=== PATIENT | female | born 1970 ===

== ENCOUNTER 2017-06-25 13:14 | Emergency (ER) | payer MEDICARE, MEDICAID ==
[2017-06-25 13:14] VITALS: BMI 24.3
[2017-06-25 13:31] VITALS: BP 125/93; PULSE 60; RESP 16; TEMP 97.5; O2SAT 99
--- NOTE | 2017-06-25 13:49 | ED PDOC ---
HPI: Abdomen Time Seen by Provider: 06/25/17 13:21 Chief Complaint (Nursing): GI Problem Chief Complaint (Provider): Nausea/Vomiting/Diarrhea History Per: Patient History/Exam Limitations: no limitations Onset/Duration Of Symptoms: Days (x14) Current Symptoms Are (Timing): Still Present Additional Complaint(s): Brook Cheng is a 47 year old female with a past medial history of HIV, epileptic seizures, Asthma, and ulcers referred to the ED by her PMD, Lg Fernandez MD, for an evaluation of nausea, vomiting, and diarrhea occurring for 2 weeks prior to arrival. The patient states associated diffuse abdominal pain, dysuria, generalized weakness, subjective fever, and chills. The patient also reports having pain in her right flank and receiving an injection for the pain at her PMD's office, without relief. She states vomiting 5 times per day, not prompted by any PO intake, and reports usually watery vomiting with blood present in her vomit this morning. She states having watery diarrhea occurring for 3-4 times per day. Additionally, the patient's last CD4/viral load count is unknown, but she states these are okay from her last evaluation of this with her PMD. She denies experiencing any similar symptoms in her past and denies taking any medications for her current symptoms. Of note, the patient is complaint with her HIV medication. PMD: Lg Fernandez MD Past Medical History Reviewed: Historical Data, Nursing Documentation, Vital Signs Vital Signs: Last Vital Signs Temp 97.5 F L 06/25/17 13:17 Pulse 60 06/25/17 13:17 Resp 16 06/25/17 13:17 BP 125/93 H 06/25/17 13:17 Pulse Ox 99 06/25/17 16:40 - Medical History PMH: Anemia, Anxiety, Asthma (last attack 09/20/13), HIV, Seizures Denies: Diabetes, Hepatitis, HTN, Chronic Kidney Disease, Sexually Transmitted Disease - Surgical History Surgical History: Tonsillectomy (2012), - Family History Family History: States: Other Other Family History: non-contributory - Social History Current smoker - smoking cessation education provided: Yes Alcohol: None Drugs: Denies - Home Medications Home Medications: Ambulatory Orders Medication Instructions Recorded ALPRAZolam [Xanax] 1 mg PO Q12H 06/25/17 Albuterol HFA [Ventolin HFA 90 2 puff IH Q4H PRN 06/25/17 mcg/actuation (8 g)] Budesonide/Formoterol Fumarate 2 puff IH Q12H 06/25/17 [Symbicort 80-4.5 Mcg Inhaler] DULoxetine [Cymbalta] 20 mg PO DAILY 06/25/17 Dicyclomine [Bentyl] 20 mg PO BID PRN #30 tab 06/25/17 Dolutegravir Sodium [Tivicay] 50 mg PO DAILY 06/25/17 Emtricitabine/Tenofovir Diso 1 tab PO DAILY 06/25/17 [Truvada 200 MG-300 MG] Ergocalciferol (Vitamin D2) 50,000 unit PO FR 06/25/17 [Vitamin D2] Hydrocodone/Acetaminophen 1 tab PO Q12H PRN 06/25/17 [Hydrocodone-Acetamin 5-325 mg] Levetiracetam [Keppra] 750 mg PO Q12H 06/25/17 Ondansetron ODT [Zofran ODT] 1 odt PO Q6 PRN #20 odt 06/25/17 Ondansetron [Zofran Tab] 4 mg PO Q8H PRN 06/25/17 Pantoprazole Sodium [Protonix] 40 mg PO DAILY 06/25/17 QUEtiapine [Seroquel] 100 mg PO HS 06/25/17 - Allergies Allergies/Adverse Reactions: Allergies Allergy/AdvReac Type Severity Reaction Status Date / Time FISH Allergy RASH Verified 09/10/15 09:17 Review of Systems ROS Statement: Except As Marked, All Systems Reviewed And Found Negative Constitutional: Positive for: Fever (subjective), Chills, Weakness (generalized) Cardiovascular: Negative for: Edema Respiratory: Negative for: Cough, Shortness of Breath Gastrointestinal: Positive for: Nausea, Vomiting, Abdominal Pain (diffuse), Diarrhea, Hematemesis Genitourinary Female: Positive for: Dysuria Musculoskeletal: Positive for: Other (right flank pain) Neurological: Negative for: Numbness, Headache Physical Exam - Reviewed Nursing Documentation Reviewed: Yes Vital Signs Reviewed: Yes - Physical Exam Appears: Positive for: Non-toxic, No Acute Distress Head Exam: Positive for: ATRAUMATIC, NORMOCEPHALIC Skin: Positive for: Normal Color, Warm, Dry Eye Exam: Positive for: Normal appearance, EOMI, PERRL ENT: Positive for: Normal ENT Inspection, Pharynx Is (normal) Neck: Positive for: Normal, Painless ROM Cardiovascular/Chest: Positive for: Regular Rate, Rhythm, Chest Non Tender Respiratory: Positive for: Normal Breath Sounds. Negative for: Respiratory Distress Gastrointestinal/Abdominal: Positive for: Soft, Tenderness (diffuse tenderness) . Negative for: Mass Extremity: Positive for: Normal ROM. Negative for: Pedal Edema, Deformity Neurologic/Psych: Positive for: Alert, Oriented (x3). Negative for: Motor/ Sensory Deficits, Other (no focal deficits) - Laboratory Results Result Diagrams: 06/25/17 13:59 06/25/17 13:59 - ECG O2 Sat by Pulse Oximetry: 99 (RA) Pulse Ox Interpretation: Normal Medical Decision Making Medical Decision Making: Scribe Attestation: Documented by Татьяна Holly, acting as a scribe for Neo Inman MD. Provider Scribe Attestation: All medical record entries made by the Scribe were at my direction and personally dictated by me. I have reviewed the chart and agree that the record accurately reflects my personal performance of the history, physical exam, medical decision making, and the department course for this patient. I have also personally directed, reviewed, and agree with the discharge instructions and disposition. Disposition - Clinical Impression Clinical Impression: Abdominal pain, Vomiting and diarrhea - Disposition Referrals: Lg Fernandez MD [Staff Provider] - 06/26/17 Disposition Time: 15:00 Condition: STABLE Prescriptions: Dicyclomine [Bentyl] 20 mg PO BID PRN #30 tab PRN Reason: abdominal pain Ondansetron ODT [Zofran ODT] 1 odt PO Q6 PRN #20 odt PRN Reason: Nausea/Vomiting Forms: [facility] ([place]ican) Patient Signed Over To: Lorena Combs (15:00) Handoff Comments: pending CT scan results
[2017-06-25] MEDS ORDERED: Morphine 4 MG/ML VIAL ONE (14:00)
[2017-06-25] MEDS: Sodium Chloride 0.9% 1,000 ML IV SCH (14:02)
[2017-06-25 14:10] LABS: BASO % 0.3 % (0.0-2.0); EOS # 0.1 K/uL (0.0-0.7); EOS % 0.7 % (0.0-4.0); HEMATOCRIT 46.2 % (34.0-47.0); LYMPH # 2.6 K/uL (1.0-4.3); MEAN CORPUSCULAR HGB CONC 34.5 g/dL (33.0-37.0); MEAN PLATELET VOLUME 8.1 fl (7.2-11.7); MONO # 0.4 K/uL (0.0-0.8); MONO % 5.5 % (0.0-10.0); NEUT # 4.5 K/uL (1.8-7.0); NEUT % 59.5 % (50.0-75.0); NRBC % 0.2 % (0.0-0.0); RED CELL DISTRIBUTION WIDTH 12.5 % (11.5-14.5); WHITE BLOOD COUNT 7.5 K/uL (4.8-10.8)
[2017-06-25 14:16] LABS: ALKALINE PHOSPHATASE 83 U/L (38-126); ALT/SGPT 40 U/L (9-52); AST/SGOT 34 U/L (14-36); BILIRUBIN,TOTAL 0.6 mg/dl (0.2-1.3); BLOOD UREA NITROGEN 13 mg/dl (7-17); CARBON DIOXIDE 24 mmol/L (22-30); CHLORIDE 105 mmol/L (98-107); GFR AFRICAN-AMERICAN > 60; GLUCOSE,RANDOM 104 mg/dL (65-105); LIPASE 97 U/L (23-300); MEAN CELL VOLUME 95.5 fl (81.0-99.0); POTASSIUM 3.6 MMOL/L (3.6-5.0); SODIUM 143 mmol/l (132-148); TOTAL PROTEIN 8.7 G/DL (6.3-8.2)
[2017-06-25 14:40] LABS: ALB/GLOB RATIO 1.2 (1.0-2.1)
[2017-06-25 14:49] LABS: RBC URINE 3 /hpf (0-3); URINE BACTERIA RARE (<OCC); URINE BILIRUBIN NEGATIVE (NEGATIVE); URINE BLOOD NEGATIVE (NEGATIVE); URINE COLOR YELLOW (YELLOW); URINE GLUCOSE (UA) NEG (Normal); URINE KETONE NEGATIVE (NEGATIVE); URINE LEUKOCYTE ESTERASE NEG Leu/uL (Negative); URINE PROTEIN 30 mg/dL (NEGATIVE); URINE UROBILINOGEN 0.2-1.0 mg/dL (0.2-1.0); WBC URINE 1 /hpf (0-5)
[2017-06-25] MEDS ORDERED: Iohexol 300 100 ML IJ ONE (14:51)
[2017-06-25 15:02] LABS: VENOUS BLOOD GAS BASE EXCESS -0.6 mmol/L (0.0-2.0); VENOUS BLOOD GAS PCO2 43 mmHg (40-60); VENOUS BLOOD PH 7.37 (7.32-7.43)
--- NOTE | 2017-06-25 15:06 | ED PDOC ---
- Laboratory Results Result Diagrams: 06/25/17 13:59 06/25/17 13:59 - ECG O2 Sat by Pulse Oximetry: 99 (RA) Pulse Ox Interpretation: Normal Medical Decision Making Medical Decision Makin:00 Patient signed over from Neo Inman MD to me, Lorena Combs MD, pending CT reassessment and final ER disposition. 15:35 Abdomen/Pelvis CT FINDINGS: LOWER THORAX: Unremarkable. LIVER: Unremarkable. No gross lesion or ductal dilatation. GALLBLADDER AND BILE DUCTS: Unremarkable. PANCREAS: Unremarkable. No gross lesion or ductal dilatation. SPLEEN: Unremarkable. ADRENALS: Unremarkable. No mass. KIDNEYS AND URETERS: Unremarkable. No hydronephrosis. No solid mass. VASCULATURE: Unremarkable. No aortic aneurysm. BOWEL: Unremarkable. No obstruction. No gross mural thickening. APPENDIX: Normal appendix. PERITONEUM: Unremarkable. No free fluid. No free air. LYMPH NODES: Unremarkable. No enlarged lymph nodes. BLADDER: Unremarkable. REPRODUCTIVE: Unremarkable. BONES: No acute fracture. Chronic bilateral L4 transverse process fractures. OTHER FINDINGS: None. IMPRESSION: No acute abdominal pelvic pathology. 15:55 --Discussed case with Dr. Chai Arango for corpus christi. If patient's work up is unremarkable and pt tolerates PO, she can be discharged home for follow-up. 1600 Tolerated PO Pt eager to go home. Scribe Attestation: Documented by Татьяна Holly, acting as a scribe for Lorena Combs MD. Provider Scribe Attestation: All medical record entries made by the Scribe were at my direction and personally dictated by me. I have reviewed the chart and agree that the record accurately reflects my personal performance of the history, physical exam, medical decision making, and the department course for this patient. I have also personally directed, reviewed, and agree with the discharge instructions and disposition. Disposition Counseled Patient/Family Regarding: Studies Performed, Diagnosis, Need For Followup, Rx Given - Clinical Impression Clinical Impression: Gastroenteritis - POA Present On Arrival: None - Disposition Referrals: Lg Fernandez MD [Staff Provider] - 06/26/17 Disposition: Routine/Home Disposition Time: 16:35 Condition: IMPROVED Prescriptions: Dicyclomine [Bentyl] 20 mg PO BID PRN #30 tab PRN Reason: abdominal pain Ondansetron ODT [Zofran ODT] 1 odt PO Q6 PRN #20 odt PRN Reason: Nausea/Vomiting Forms: [facility] (Mosotho)
--- NOTE | 2017-06-25 15:37 | CT ---
PROCEDURE: CT Abdomen and Pelvis with contrast HISTORY: abdominal pain COMPARISON: CT scan of the abdomen and pelvis dated 09/10/2015. TECHNIQUE: Contrast dose: 95 mL Omnipaque 300 Radiation dose: Total exam DLP = 340.1 mGy-cm. This CT exam was performed using one or more of the following dose reduction techniques: Automated exposure control, adjustment of the mA and/or kV according to patient size, and/or use of iterative reconstruction technique. FINDINGS: LOWER THORAX: Unremarkable. LIVER: Unremarkable. No gross lesion or ductal dilatation. GALLBLADDER AND BILE DUCTS: Unremarkable. PANCREAS: Unremarkable. No gross lesion or ductal dilatation. SPLEEN: Unremarkable. ADRENALS: Unremarkable. No mass. KIDNEYS AND URETERS: Unremarkable. No hydronephrosis. No solid mass. VASCULATURE: Unremarkable. No aortic aneurysm. BOWEL: Unremarkable. No obstruction. No gross mural thickening. APPENDIX: Normal appendix. PERITONEUM: Unremarkable. No free fluid. No free air. LYMPH NODES: Unremarkable. No enlarged lymph nodes. BLADDER: Unremarkable. REPRODUCTIVE: Unremarkable. BONES: No acute fracture. Chronic bilateral L4 transverse process fractures. OTHER FINDINGS: None. IMPRESSION: No acute abdominal pelvic pathology.
== END 2017-06-25 16:54 | disposition home or self-care (01) ==
LOC: H.ER 13:14
DX: K52.9 Noninfective gastroenteritis and colitis, unspecified (principal); Z86.69 Personal history of other diseases of the nervous system and sense organs; B20 Human immunodeficiency virus [HIV] disease; J45.909 Unspecified asthma, uncomplicated; F41.9 Anxiety disorder, unspecified; F17.200 Nicotine dependence, unspecified, uncomplicated
CPT/HCPCS: 74177; 80053; 81003; 82803; 83690; 85025; 87040; 87086; 96374; 96375; 99283; J1885; J2270; J2405; J7040; Q9967

== ENCOUNTER 2017-07-13 17:28 | Emergency (ER) | payer MEDICARE, MEDICAID ==
[2017-07-13 17:29] VITALS: BMI 24.3
[2017-07-13] MEDS: Sodium Chloride 0.9% 1,000 ML IV STA (18:21)
[2017-07-13 18:26] LABS: SQUAMOUS EPITHIAL 13 /hpf (0-5); URINE BACTERIA RARE (<OCC); URINE BILIRUBIN NEGATIVE (NEGATIVE); URINE BLOOD NEGATIVE (NEGATIVE); URINE CLARITY CLOUDY (Clear); URINE COLOR YELLOW (YELLOW); URINE GLUCOSE (UA) NEG (Normal); URINE LEUKOCYTE ESTERASE NEG Leu/uL (Negative); URINE NITRATE NEGATIVE (NEGATIVE); URINE PROTEIN NEGATIVE (NEGATIVE); URINE UROBILINOGEN 0.2-1.0 mg/dL (0.2-1.0)
[2017-07-13 18:28] LABS: BASO # 0.1 K/uL (0.0-0.2); BASO % 0.6 % (0.0-2.0); EOS # 0.1 K/uL (0.0-0.7); EOS % 1.5 % (0.0-4.0); HEMOGLOBIN 14.5 g/dL (12.0-16.0); LYMPH # 2.3 K/uL (1.0-4.3); LYMPH % 25.7 % (20.0-40.0); MEAN CELL VOLUME 97.2 fl (81.0-99.0); MEAN CORPUSCULAR HEMOGLOBIN 32.6 pg (27.0-31.0); MEAN CORPUSCULAR HGB CONC 33.6 g/dL (33.0-37.0); MEAN PLATELET VOLUME 8.2 fl (7.2-11.7); MONO # 0.6 K/uL (0.0-0.8); MONO % 7.2 % (0.0-10.0); NEUT # 5.9 K/uL (1.8-7.0); NRBC % 0.1 % (0.0-0.0); RBC 4.43 Mil/uL (3.80-5.20); RED CELL DISTRIBUTION WIDTH 12.5 % (11.5-14.5)
[2017-07-13 19:00] LABS: ALB/GLOB RATIO 1.1 (1.0-2.1); ALBUMIN 4.2 g/dL (3.5-5.0); ALT/SGPT 45 U/L (9-52); AST/SGOT 30 U/L (14-36); BLOOD UREA NITROGEN 12 mg/dl (7-17); CALCIUM 9.4 mg/dL (8.4-10.2); GFR AFRICAN-AMERICAN > 60; GFR NON-AFRICAN AMERICAN > 60; LIPASE 107 U/L (23-300)
[2017-07-13] MEDS: Iohexol 240 (50 ml) PO ONE (19:31)
[2017-07-13] MEDS ORDERED: Sodium Chloride 0.9% 50 ML IV ONE (19:37)
[2017-07-13] MEDS ORDERED: Iohexol 300 100 ML IJ ONE (19:37)
--- NOTE | 2017-07-13 20:24 | ED PDOC ---
HPI: Abdomen Time Seen by Provider: 07/13/17 17:50 Chief Complaint (Nursing): Abdominal Pain Chief Complaint (Provider): adbominal pain History Per: Patient History/Exam Limitations: no limitations Location Of Pain/Discomfort: RUQ, Epigastric, Other (right flank) Quality Of Discomfort: Cramping, Burning Associated Symptoms: Nausea, Vomiting, Diarrhea, Loss Of Appetite. denies: Fever, Chills, Back Pain, Chest Pain, Constipation, Urinary Symptoms Exacerbating Factors: Food Alleviating Factors: Rest Last Bowel Movement: Today Additional Complaint(s): 47yo F in Ed with c/o abdominal pain x 2-3days worsening with associated nausea and vomiting and diarrhea. pt denies fever or chills hemautira, blood in vomit blood in stool. pt was instructed to f.u in Ed for further eval. Pt was seen in ED 06/25/[address] scan was normal. . Abnormal Vaginal Bleeding: No Past Medical History Reviewed: Historical Data, Nursing Documentation, Vital Signs Vital Signs: Last Vital Signs Temp 98.5 F 07/13/17 17:32 Pulse 83 07/13/17 17:32 Resp 16 07/13/17 17:32 BP 116/83 07/13/17 17:32 Pulse Ox 100 07/13/17 20:24 - Medical History PMH: Anemia, Anxiety, Asthma (last attack 09/20/13), HIV, Seizures Denies: Diabetes, Hepatitis, HTN, Chronic Kidney Disease, Sexually Transmitted Disease - Surgical History Surgical History: Tonsillectomy (2012), - Family History Family History: States: No Known Family Hx - Home Medications Home Medications: Ambulatory Orders Medication Instructions Recorded ALPRAZolam [Xanax] 1 mg PO Q12H 06/25/17 Albuterol HFA [Ventolin HFA 90 2 puff IH Q4H PRN 06/25/17 mcg/actuation (8 g)] Budesonide/Formoterol Fumarate 2 puff IH Q12H 06/25/17 [Symbicort 80-4.5 Mcg Inhaler] DULoxetine [Cymbalta] 20 mg PO DAILY 06/25/17 Dicyclomine [Bentyl] 20 mg PO BID PRN #30 tab 06/25/17 Dolutegravir Sodium [Tivicay] 50 mg PO DAILY 06/25/17 Emtricitabine/Tenofovir Diso 1 tab PO DAILY 06/25/17 [Truvada 200 MG-300 MG] Ergocalciferol (Vitamin D2) 50,000 unit PO FR 06/25/17 [Vitamin D2] Hydrocodone/Acetaminophen 1 tab PO Q12H PRN 06/25/17 [Hydrocodone-Acetamin 5-325 mg] Levetiracetam [Keppra] 750 mg PO Q12H 06/25/17 Ondansetron ODT [Zofran ODT] 1 odt PO Q6 PRN #20 odt 06/25/17 Ondansetron [Zofran Tab] 4 mg PO Q8H PRN 06/25/17 Pantoprazole Sodium [Protonix] 40 mg PO DAILY 06/25/17 QUEtiapine [Seroquel] 100 mg PO HS 06/25/17 - Allergies Allergies/Adverse Reactions: Allergies Allergy/AdvReac Type Severity Reaction Status Date / Time No Known Allergies Allergy Verified 07/13/17 17:32 Review of Systems ROS Statement: Except As Marked, All Systems Reviewed And Found Negative Gastrointestinal: Positive for: Nausea, Vomiting, Abdominal Pain, Diarrhea Physical Exam - Reviewed Nursing Documentation Reviewed: Yes Vital Signs Reviewed: Yes - Physical Exam Appears: Positive for: Non-toxic, No Acute Distress, Uncomfortable Skin: Positive for: Normal Color, Warm, DRY Cardiovascular/Chest: Positive for: Regular Rate, Rhythm Respiratory: Positive for: CNT, Normal Breath Sounds Gastrointestinal/Abdominal: Positive for: Bowel Sounds, Soft, Tenderness (RUQ/ epigastric and flank pain) Back: Positive for: R CVA Tenderness. Negative for: L CVA Tenderness Extremity: Positive for: Normal ROM Neurologic/Psych: Positive for: Alert, Oriented - Laboratory Results Result Diagrams: 07/13/17 18:20 07/13/17 18:20 - ECG O2 Sat by Pulse Oximetry: 100 - Progress ED Course And Treament: Orders Category Date Time Status ABD PELVIS PO & IV CONTRAST [CT] Stat CT 07/13/17 18:27 Ordered COMP METABOLIC PANEL Stat Chem 07/13/17 18:20 Completed LIPASE Stat Chem 07/13/17 18:20 Completed ED Urine (POC) Stat ED Care 07/13/17 18:05 Ordered CBC (WITH DIFFERENTIAL) Stat VIKTOR 07/13/17 18:20 Completed Famotidine [Pepcid] Med 07/13/17 18:12 Discontinued 20 mg .ROUTE .STK-MED ONE Famotidine [Pepcid] Med 07/13/17 17:49 Discontinued 20 mg IVP STAT STA Iohexol [Omnipaque 240 (50 ML)] Med 07/13/17 18:27 Discontinued 50 ml PO ONCE ONE Iohexol [Omnipaque 300 100 ML] Med 07/13/17 19:37 Discontinued 100 ml IJ .STK-MED ONE Ketorolac [Toradol] Med 07/13/17 19:26 Discontinued 30 mg .ROUTE .STK-MED ONE Ketorolac [Toradol] Med 07/13/17 19:28 Discontinued 30 mg IVP STAT STA Ondansetron [Zofran Inj] Med 07/13/17 18:12 Discontinued 4 mg .ROUTE .STK-MED ONE Ondansetron [Zofran Inj] Med 07/13/17 17:49 Discontinued 4 mg IVP STAT STA Sodium Chloride 0.9% 1,000 ml Med 07/13/17 18:20 Discontinued IV 1,000 mls/hr Sodium Chloride 0.9% 50 ml Med 07/13/17 19:37 Discontinued IV .STK-MED IV Insertion (Saline Lock) ONCE NURSING 07/13/17 17:49 Active URINALYSIS Stat URINALYSIS 07/13/17 18:15 Completed ABDOMEN LIMITED (GB INCLUDED) [US] Stat US 07/13/17 18:27 Ordered Medical Decision Making Medical Decision Making: case to be transferred to [facility] for continued eval and work up Disposition - Clinical Impression Clinical Impression: Abdominal tenderness - Patient ED Disposition Is Patient to be Admitted: Transfer of Care - Disposition Disposition Time: 20:29 Condition: STABLE Forms: [employer] (Chinese) Patient Signed Over To: Ashly Cutler
--- NOTE | 2017-07-13 20:58 | ED PDOC ---
- Laboratory Results Result Diagrams: 07/13/17 18:20 07/13/17 18:20 - ECG O2 Sat by Pulse Oximetry: 100 - Progress ED Course And Treament: Case endorsed to policy writer typist from Elvia JONES pending labs, imaging EXAM: US Abdomen Limited, Right Upper Quadrant CLINICAL HISTORY: 47 years old, female; Pain; Abdominal pain; Additional info: Abdominal ppain TECHNIQUE: Real-time ultrasound of the right upper quadrant with image documentation. COMPARISON: CT - ABD PELVIS PO IV CONTRAST 2015-09-10 09:19 FINDINGS: Liver: Unremarkable. No mass. No intrahepatic bile duct dilation. Liver span 17.8 cm mild hepatomegaly Gallbladder: Unremarkable. No gallstones. Common bile duct: Unremarkable as visualized. No stones. measures 3.6 mm Pancreas: Unremarkable as visualized. Right kidney: Unremarkable. No stones. No solid mass. No hydronephrosis. Measures 10.5 cm x 6.2 cm x 4.9 cm IMPRESSION: 1. Mild hepatomegaly 2. Otherwise Normal right upper quadrant ultrasound EXAM: CT Abdomen and Pelvis With Intravenous Contrast CLINICAL HISTORY: 47 years old, female; Pain; Abdominal pain; Generalized; Prior surgery; Surgery date: 6+ months; Surgery type: 3 c-sections. Hysterectomy ? ? ? ; additional info: Adbdominal pain. Vomiting. Sent phy. Doc. TECHNIQUE: Axial computed tomography images of the abdomen and pelvis with intravenous contrast. All CT scans at this facility use one or more dose reduction techniques, viz.: automated exposure control; ma/kV adjustment per patient size (including targeted exams where dose is matched to indication; i.e. head); or iterative reconstruction technique. Coronal and sagittal reformatted images were created and reviewed. CONTRAST: 95 mL of [id number] administered intravenously. COMPARISON: CT - ABD PELVIS IV CONTRAST ONLY 2017-06-25 14:54 FINDINGS: Lower thorax: There is minimal bibasilar atelectasis. ABDOMEN: Liver: Unremarkable. No mass. Gallbladder and bile ducts: Unremarkable. No calcified stones. No ductal dilation. Pancreas: Unremarkable. No mass. No ductal dilation. Spleen: Unremarkable. No splenomegaly. Adrenals: Unremarkable. No mass. Kidneys and ureters: Unremarkable. No solid mass. No hydronephrosis. Stomach and bowel: Unremarkable. No obstruction. No mucosal thickening. Appendix: No findings to suggest acute appendicitis. Normal appendix. PELVIS: Bladder: Unremarkable. No mass. Reproductive: Unremarkable as visualized. ABDOMEN and PELVIS: Intraperitoneal space: Unremarkable. No free air. No significant fluid collection. Bones/joints: No acute fracture. No dislocation. Soft tissues: Unremarkable. Vasculature: Unremarkable. No abdominal aortic aneurysm. Lymph nodes: Unremarkable. No enlarged lymph nodes. IMPRESSION: No evidence of an acute intra-abdominal or pelvic abnormality. Patient tolerated PO, talking on cell phone, no acute distress. Case discussed with Chai Arango P[employer]ER, who states if labs/imaging normal and patient feeling better can be discharged and follow up in office in AM. Patient educated on findings, discharged with instructions to follow up PMD tomorrow. Advised to continue current medications. Bentyl given. Return precautions given. Disposition - Clinical Impression Clinical Impression: Abdominal tenderness, Gastritis, Gastroenteritis - POA Present On Arrival: None - Disposition Disposition: Routine/Home Disposition Time: 23:03 Condition: IMPROVED Additional Instructions: Take Odansetron as previously prescribed, as needed for nausea/vomiting. Continue Esomeprazole as previously prescribed. Take Dicyclomine as directed, as needed for pain. Follow up with primary doctor tomorrow. Return to ED for worsening/concerning symptoms. Prescriptions: Dicyclomine [Bentyl] 20 mg PO TID #21 tab Instructions: Gastroenteritis (ED), Gastritis (ED) Forms: [employer] (Austrian)
[2017-07-13] MEDS ORDERED: Morphine 4 MG/ML VIAL ONE ×2 (21:08→23:06)
--- NOTE | 2017-07-13 22:26 | CT ---
EXAM: CT Abdomen and Pelvis With Intravenous Contrast CLINICAL HISTORY: 47 years old, female; Pain; Abdominal pain; Generalized; Prior surgery; Surgery date: 6+ months; Surgery type: 3 c-sections. Hysterectomy ? ? ? ; additional info: Adbdominal pain. Vomiting. Sent phy. Doc. TECHNIQUE: Axial computed tomography images of the abdomen and pelvis with intravenous contrast. All CT scans at this facility use one or more dose reduction techniques, viz.: automated exposure control; ma/kV adjustment per patient size (including targeted exams where dose is matched to indication; i.e. head); or iterative reconstruction technique. Coronal and sagittal reformatted images were created and reviewed. CONTRAST: 95 mL of [id number] administered intravenously. COMPARISON: CT - ABD PELVIS IV CONTRAST ONLY 2017-06-25 14:54 FINDINGS: Lower thorax: There is minimal bibasilar atelectasis. ABDOMEN: Liver: Unremarkable. No mass. Gallbladder and bile ducts: Unremarkable. No calcified stones. No ductal dilation. Pancreas: Unremarkable. No mass. No ductal dilation. Spleen: Unremarkable. No splenomegaly. Adrenals: Unremarkable. No mass. Kidneys and ureters: Unremarkable. No solid mass. No hydronephrosis. Stomach and bowel: Unremarkable. No obstruction. No mucosal thickening. Appendix: No findings to suggest acute appendicitis. Normal appendix. PELVIS: Bladder: Unremarkable. No mass. Reproductive: Unremarkable as visualized. ABDOMEN and PELVIS: Intraperitoneal space: Unremarkable. No free air. No significant fluid collection. Bones/joints: No acute fracture. No dislocation. Soft tissues: Unremarkable. Vasculature: Unremarkable. No abdominal aortic aneurysm. Lymph nodes: Unremarkable. No enlarged lymph nodes. IMPRESSION: No evidence of an acute intra-abdominal or pelvic abnormality.
[2017-07-13] MEDS: Morphine 4 MG/ML VIAL IVP ONE (23:14)
[2017-07-13 23:26] VITALS: BP 125/77; PULSE 61; RESP 14; TEMP 98.4; O2SAT 100
--- NOTE | 2017-07-14 11:10 | US ---
HISTORY: abdominal ppain COMPARISON: CT abdomen and pelvis 06/25/2017 TECHNIQUE: Sonographic evaluation of the right upper quadrant of the abdomen. FINDINGS: LIVER: Measures 17.8 cm in length. Normal echogenicity of the liver parenchyma. No mass. No intrahepatic bile duct dilatation. GALLBLADDER: Unremarkable. No gallstones. No gallstones, wall thickening or pericholecystic fluid. The sonographic Koo's sign is negative. COMMON BILE DUCT: Measures 3.7 mm. No stones. No dilatation. PANCREAS: Unremarkable as visualized. No mass. No ductal dilatation. RIGHT KIDNEY: Measures 10.5 x 4.9 x 6.2 cm in length. Normal echogenicity. No calculus, mass, or hydronephrosis. AORTA: No aneurysmal dilatation. IVC: Unremarkable. OTHER FINDINGS: None . IMPRESSION: No acute abdominal pathology noted. Specifically no gallbladder pathology Borderline hepatomegaly
== END 2017-07-13 23:00 | disposition home or self-care (01) ==
LOC: H.ER 17:28
DX: K52.9 Noninfective gastroenteritis and colitis, unspecified (principal); K29.70 Gastritis, unspecified, without bleeding; F41.9 Anxiety disorder, unspecified; Z90.710 Acquired absence of both cervix and uterus; J45.909 Unspecified asthma, uncomplicated
CPT/HCPCS: 74177; 76705; 80053; 81003; 81025; 83690; 85025; 96374; 96375; 96376; 99284; J1885; J2270; J2405; J7040; Q9966; Q9967

== ENCOUNTER 2018-06-14 11:07 | Observation (INO) | payer MEDICARE, MEDICAID ==
[2018-06-14 11:08] VITALS: BMI 24.3
[2018-06-14] MEDS ORDERED: Sodium Chloride 0.9% 1,000 ML IV STA (11:38)
--- NOTE | 2018-06-14 12:06 | RAD ---
Date of service: 06/14/2018 HISTORY: Chest pain COMPARISON: No prior. TECHNIQUE: Chest PA and lateral FINDINGS: LINES AND TUBES: None. LUNG AND PLEURA: The lungs are hyperinflated and there is peribronchial thickening with chronic changes in both lungs. No focal consolidation. No pleural effusion or pneumothorax. HEART AND MEDIASTINUM: The heart is not enlarged. No aortic atherosclerotic calcification present. The hilar and mediastinal contours are within normal limits. SKELETAL STRUCTURES: The bony structures are within normal limits for the patient's age. VISUALIZED UPPER ABDOMEN: Normal. OTHER FINDINGS: None. IMPRESSION: No active pulmonary disease.. COPD.
[2018-06-14 12:19] LABS: BASO % 0.7 % (0.0-2.0); EOS # 0.1 K/uL (0.0-0.7); EOS % 1.7 % (0.0-4.0); HEMOGLOBIN 14.5 g/dL (12.0-16.0); LYMPH # 2.3 K/uL (1.0-4.3); LYMPH % 40.6 % (20.0-40.0); MEAN CELL VOLUME 100.4 fl (81.0-99.0); MEAN CORPUSCULAR HEMOGLOBIN 34.2 pg (27.0-31.0); MEAN CORPUSCULAR HGB CONC 34.1 g/dL (33.0-37.0); MEAN PLATELET VOLUME 8.1 fl (7.2-11.7); MONO # 0.4 K/uL (0.0-0.8); MONO % 7.2 % (0.0-10.0); NEUT # 2.9 K/uL (1.8-7.0); NEUT % 49.8 % (50.0-75.0); NRBC % 0.3 % (0.0-0.0); RBC 4.24 Mil/uL (3.80-5.20); RED CELL DISTRIBUTION WIDTH 12.7 % (11.5-14.5); WHITE BLOOD COUNT 5.7 K/uL (4.8-10.8)
[2018-06-14 12:21] LABS: ALB/GLOB RATIO 1.1 (1.0-2.1); ALBUMIN 4.4 g/dL (3.5-5.0); ALT/SGPT 34 U/L (9-52); AST/SGOT 32 U/L (14-36); BLOOD UREA NITROGEN 12 mg/dl (7-17); CALCIUM 9.1 mg/dL (8.4-10.2); GFR NON-AFRICAN AMERICAN > 60; LIPASE 98 U/L (23-300)
[2018-06-14] MEDS ORDERED: Alum-Mag Hydrox-Simethicone Susp (30 mL) PO STA (13:51)
[2018-06-14 13:52] VITALS: O2SAT 100
[2018-06-14] MEDS ORDERED: Alum-Mag Hydrox-Simethicone Susp (30 mL) ONE (13:59)
--- NOTE | 2018-06-14 15:09 | ED PDOC ---
HPI: Chest Pain Time Seen by Provider: 06/14/18 11:37 Chief Complaint (Nursing): Chest Pain Chief Complaint (Provider): Central chest pressure, epigastric pain History Per: Patient History/Exam Limitations: no limitations Onset/Duration Of Symptoms: Days (1) Current Symptoms Are (Timing): Still Present Additional Complaint(s): 48 yo female with gastritis, HIV, cardiac arrest and asthma presents for evaluation of chest pain which began last evening/early this morning. PT states she is also having epigastric pain. Pt states her epigastric pain is similar to previous episodes of gastritis. Pt states the chest pain in new. Pt also reports right flank pain, worse with movement. Pt states approx 1 month ago she was at home when her son witnessed her pass out. PT states her son called 911, EMS can and did CPR on her. PT states she woke up 3 days later with tubes in her nose and mouth. PT states she was told her heart stopped due to stress. PT sates she was not given additional medications after discharge. Past Medical History Reviewed: Historical Data, Nursing Documentation, Vital Signs Vital Signs: Last Vital Signs Temp 97.5 F L 06/14/18 11:15 Pulse 73 06/14/18 13:52 Resp 14 06/14/18 13:52 BP 120/75 06/14/18 13:52 Pulse Ox 100 06/14/18 13:52 - Medical History PMH: Anemia, Anxiety, Asthma (last attack 09/20/13), HIV, Seizures Denies: Diabetes, Hepatitis, HTN, Chronic Kidney Disease, Sexually Transmitted Disease - Surgical History Surgical History: Tonsillectomy (2012), - Family History Family History: States: No Known Family Hx - Living Arrangements Living Arrangements: With Family - Social History Current smoker - smoking cessation education provided: No - Home Medications Home Medications: Ambulatory Orders Medication Instructions Recorded ALPRAZolam [Xanax] 1 mg PO Q12H 06/25/17 Albuterol HFA [Ventolin HFA 90 2 puff IH Q6 PRN 06/25/17 mcg/actuation (8 g)] Dolutegravir Sodium [Tivicay] 50 mg PO DAILY 06/25/17 Emtricitabine/Tenofovir Diso 1 tab PO DAILY 06/25/17 [Truvada 200 MG-300 MG] Hydrocodone/Acetaminophen 1 tab PO Q12H PRN 06/25/17 [Hydrocodone-Acetamin 5-325 mg] Levetiracetam [Keppra] 750 mg PO Q12H 06/25/17 DULoxetine [Cymbalta] 60 mg PO DAILY 06/14/18 Ziprasidone [Geodon Cap] 40 mg PO DAILY 06/14/18 - Allergies Allergies/Adverse Reactions: Allergies Allergy/AdvReac Type Severity Reaction Status Date / Time No Known Allergies Allergy Verified 07/13/17 17:32 Review of Systems ROS Statement: Except As Marked, All Systems Reviewed And Found Negative Constitutional: Negative for: Fever, Chills Cardiovascular: Positive for: Chest Pain. Negative for: Palpitations, Edema, Light Headedness Respiratory: Negative for: Cough, Shortness of Breath Gastrointestinal: Positive for: Nausea, Abdominal Pain. Negative for: Vomiting Genitourinary Female: Negative for: Dysuria, Frequency, Incontinence Physical Exam - Reviewed Nursing Documentation Reviewed: Yes Vital Signs Reviewed: Yes - Physical Exam Appears: Positive for: Well, Non-toxic, No Acute Distress Head Exam: Positive for: ATRAUMATIC, NORMAL INSPECTION, NORMOCEPHALIC Skin: Positive for: Normal Color, Warm, DRY Eye Exam: Positive for: Normal appearance ENT: Positive for: Normal ENT Inspection Neck: Positive for: Normal, Painless ROM Cardiovascular/Chest: Positive for: Regular Rate, Rhythm Respiratory: Positive for: Normal Breath Sounds. Negative for: Accessory Muscle Use, Respiratory Distress Gastrointestinal/Abdominal: Positive for: Soft, Tenderness (Epigastric, no RUQ, (-) Koo's sign ). Negative for: Normal Exam, Guarding, Rebound Back: Positive for: Normal Inspection, R CVA Tenderness. Negative for: Vertebral Tenderness, Muscle Spasm Extremity: Positive for: Normal ROM Neurologic/Psych: Positive for: Alert, Oriented - Laboratory Results Result Diagrams: 06/14/18 12:00 06/14/18 12:00 - ECG O2 Sat by Pulse Oximetry: 100 Medical Decision Making Medical Decision Making: Labs normal in ER. CXR - No acute abnormalities Discussed case with Chai Arango DNP for admission. Disposition - Clinical Impression Clinical Impression: Chest pain, Gastritis - Patient ED Disposition Is Patient to be Admitted: Yes - Disposition Disposition Time: 14:12 Condition: STABLE
[2018-06-14 16:39] VITALS: BP 136/77; PULSE 61; RESP 19; TEMP 97.9
--- NOTE | 2018-06-14 18:57 | CARD ---
APPROVED REPORT Date of service: 06/14/2018 EKG Measurement Heart [id number] 100P3 [id number] <Conclusion> Sinus rhythm with short MI Otherwise normal ECG
--- NOTE | 2018-06-14 19:18 | CARD ---
APPROVED REPORT Date of service: 06/14/2018 EXAM: Two-dimensional and M-mode echocardiogram with Doppler and color Doppler. Other Information Quality : GoodRhythm : NSR INDICATION Chest Pain Hx of Cardiac Arrest 2D DIMENSIONS IVSd1.09 (0.7-1.1cm)LVDd4.00 (3.9-5.9cm) LVOT Diameter2.00 (1.8-2.4cm)PWd1.21 (0.7-1.1cm) IVSs1.09 (0.8-1.2cm)LVDs3.02 (2.5-4.0cm) FS (%) 24.5 %PWs1.22 (0.8-1.2cm) M-Mode DIMENSIONS Left Atrium (MM)2.11 (2.5-4.0cm)IVSd1.29 (0.7-1.1cm) Aortic Root3.42 (2.2-3.7cm)LVDd4.01 (4.0-5.6cm) Aortic Cusp Exc.2.03 (1.5-2.0cm)PWd1.21 (0.7-1.1cm) IVSs1.52 cmFS (%) 38 % LVDs2.47 (2.0-3.8cm)PWs1.36 cm Aortic Valve AoV Peak Akbkbuuz644.6cm/sAoV VTI24.0cmAO Peak GR.5mmHg LVOT Peak Vbolevnh925.3cm/sLVOT VTI21.80cmAO Mean GR.3mmHg MICHAEL (VMAX)1.82vd8CWR (VTI)1.63cm2 Mitral Valve MV E Bjvcdbmz99.4cm/sMV DECEL JWRQ824nmRE A Gcmbphyi72.9cm/s MV VWY68gxB/A ratio1.1MVA (PHT)3.45cm2 TDI Lateral E' Peak V11.00cm/sMedial E' Peak V6.93cm/sE/Lateral E'7.2 E/Medial E'11.5 Tricuspid Valve TR Peak Taihzecr399ig/sRAP NUGXVNKP97qtMoCT Peak Gr.23mmHg [id number] LEFT VENTRICLE The left ventricle is normal size. There is normal left ventricular wall thickness. The left ventricular systolic function is normal. The estimated ejection fraction is 60-65% No regional wall motion abnormalities noted.. The left ventricular diastolic function is normal. No left ventricle thrombus noted on this study. There is no ventricular septal defect visualized. There is no left ventricular aneurysm. There is no mass noted in the left ventricle. RIGHT VENTRICLE The right ventricle is normal size. There is normal right ventricular wall thickness. The right ventricular systolic function is normal. ATRIA The left atrium size is normal. The right atrium size is normal. The interatrial septum is intact with no evidence for an atrial septal defect. AORTIC VALVE The aortic valve is normal in structure. No aortic regurgitation is present. There is no aortic valvular stenosis. There is no aortic valvular vegetation. MITRAL VALVE The mitral valve is normal in structure. There is no evidence of mitral valve prolapse. There is no mitral valve stenosis. There is no mitral valve regurgitation noted. TRICUSPID VALVE The tricuspid valve is normal in structure. There is mild tricuspid valve regurgitation noted. RVSP is calculated at 30 mm Hg. There is no tricuspid valve prolapse or vegetation. There is no tricuspid valve stenosis. PULMONIC VALVE The pulmonary valve is normal in structure. There is no pulmonic valvular regurgitation. There is no pulmonic valvular stenosis. GREAT VESSELS The aortic root is normal in size. The ascending aorta is normal in size. The pulmonary artery is normal. The IVC is normal in size and collapses >50% with inspiration. PERICARDIAL EFFUSION There is no pericardial effusion. There is no pleural effusion. <Conclusion> The estimated ejection fraction is 60-65% The left ventricular diastolic function is normal. The left atrium size is normal. There is mild tricuspid valve regurgitation noted. RVSP is calculated at 30 mm Hg.
== END 2018-06-14 16:06 | disposition home or self-care (01) ==
LOC: H.ER 11:07 → H.ERHOLD 14:04
PROVIDERS: ADMIT Family Medicine; ATTEND Family Medicine
DX: R07.89 Other chest pain (principal); K29.70 Gastritis, unspecified, without bleeding; J45.909 Unspecified asthma, uncomplicated; Z21 Asymptomatic human immunodeficiency virus [HIV] infection status; F41.9 Anxiety disorder, unspecified
CPT/HCPCS: 71046; 80053; 81025; 83690; 84484; 85025; 93005; 93306; 96361; 96374; 96375; 99284; G0378; J1885; J2405; J7030

== ENCOUNTER 2018-06-17 00:17 | Emergency (ER) | payer MEDICARE, MEDICAID ==
[2018-06-17 00:38] VITALS: BMI 27.3
[2018-06-17 00:41] VITALS: BP 115/75; PULSE 70; RESP 16; TEMP 98.3; O2SAT 97
--- NOTE | 2018-06-17 02:32 | ED PDOC ---
HPI: Skin/Bite Injury Time Seen by Provider: 06/17/18 02:15 Chief Complaint (Nursing): Abnormal Skin Integrity Chief Complaint (Provider): rash History Per: Patient History/Exam Limitations: no limitations Onset/Duration Of Symptoms: Days (2) Current Symptoms Are (Timing): Still Present Quality Of Symptoms: Itching Additional Complaint(s): 48 y/o female presents for evaluation of diffuse pruritic rash x 2 days. Patient states she is taking Benadryl with little improvement of symptoms. Denies fever, facial swelling, throat pain, difficulty speaking/swallowing, chest pain, shortness of breath, palpitations, abdominal pain. Denies known allergen Past Medical History Reviewed: Historical Data, Nursing Documentation, Vital Signs Vital Signs: Last Vital Signs Temp 98.3 F 06/17/18 00:38 Pulse 70 06/17/18 00:38 Resp 16 06/17/18 00:38 BP 115/75 06/17/18 00:38 Pulse Ox 97 06/17/18 00:38 - Medical History PMH: Anemia, Anxiety, Asthma (last attack 09/20/13), HIV, Seizures Denies: Diabetes, Hepatitis, HTN, Chronic Kidney Disease, Sexually Transmitted Disease - Surgical History Surgical History: Tonsillectomy (2012), - Family History Family History: States: No Known Family Hx - Home Medications Home Medications: Ambulatory Orders Medication Instructions Recorded ALPRAZolam [Xanax] 1 mg PO Q12H 06/25/17 Albuterol HFA [Ventolin HFA 90 2 puff IH Q6 PRN 06/25/17 mcg/actuation (8 g)] Dolutegravir Sodium [Tivicay] 50 mg PO DAILY 06/25/17 Emtricitabine/Tenofovir Diso 1 tab PO DAILY 06/25/17 [Truvada 200 MG-300 MG] Hydrocodone/Acetaminophen 1 tab PO Q12H PRN 06/25/17 [Hydrocodone-Acetamin 5-325 mg] Levetiracetam [Keppra] 750 mg PO Q12H 06/25/17 DULoxetine [Cymbalta] 60 mg PO DAILY 06/14/18 Ziprasidone [Geodon Cap] 40 mg PO HS 06/14/18 Famotidine [Pepcid] 20 mg PO BID #8 tab 06/17/18 Prednisone 50 mg PO DAILY #4 tablet 06/17/18 - Allergies Allergies/Adverse Reactions: Allergies Allergy/AdvReac Type Severity Reaction Status Date / Time No Known Allergies Allergy Verified 06/17/18 02:53 Review of Systems ROS Statement: Except As Marked, All Systems Reviewed And Found Negative Skin: Positive for: Rash Physical Exam - Reviewed Nursing Documentation Reviewed: Yes Vital Signs Reviewed: Yes - Physical Exam Appears: Positive for: Well, Non-toxic, Uncomfortable (actively scratching) Head Exam: Positive for: ATRAUMATIC, NORMAL INSPECTION, NORMOCEPHALIC Skin: Positive for: Rash (diffuse macular erythematous rash with scattered excoriations; no lesions, vesicles, sandpaper feel noted ) Eye Exam: Positive for: Normal appearance ENT: Positive for: Normal ENT Inspection Cardiovascular/Chest: Positive for: Regular Rate, Rhythm Respiratory: Positive for: Normal Breath Sounds Gastrointestinal/Abdominal: Positive for: Normal Exam Back: Positive for: Normal Inspection Extremity: Positive for: Normal ROM Neurologic/Psych: Positive for: Alert, Oriented (x3) - ECG O2 Sat by Pulse Oximetry: 97 - Progress ED Course And Treament: -Solumedrol IM -Benadryl PO -Pepcid PO On re-eval, patient states she is feeling better. Rash improved Patient educated on findings, discharged with rx Prednisone, Pepcid Advised to continue Benadryl FOllow up with PMD within 2-3 days Return precautions given Disposition - Clinical Impression Clinical Impression: Rash and nonspecific skin eruption - Patient ED Disposition Is Patient to be Admitted: No Counseled Patient/Family Regarding: Diagnosis, Need For Followup, Rx Given - Disposition Disposition: Routine/Home Disposition Time: 03:30 Condition: IMPROVED Prescriptions: Famotidine [Pepcid] 20 mg PO BID #8 tab Prednisone 50 mg PO DAILY #4 tablet Instructions: Skin Rash Forms: [employer] (Gabonese)
== END 2018-06-17 03:45 | disposition home or self-care (01) ==
LOC: H.ER 00:17
DX: R21 Rash and other nonspecific skin eruption (principal)
CPT/HCPCS: 81025; 96372; 99283; J2930

== ENCOUNTER 2018-11-18 12:21 | Observation (INO) | payer MEDICARE, MEDICAID ==
[2018-11-18 12:21] VITALS: BMI 27.3
[2018-11-18] MEDS ORDERED: Sodium Chloride 0.9% 1,000 ML IV STA ×2 (12:57→15:21)
[2018-11-18 13:29] LABS: BASO % 0.6 % (0.0-2.0); EOS # 0.1 K/uL (0.0-0.7); EOS % 1.5 % (0.0-4.0); HEMOGLOBIN 14.8 g/dL (12.0-16.0); LYMPH # 2.4 K/uL (1.0-4.3); LYMPH % 41.4 % (20.0-40.0); MEAN CELL VOLUME 95.8 fl (81.0-99.0); MEAN CORPUSCULAR HEMOGLOBIN 32.8 pg (27.0-31.0); MEAN CORPUSCULAR HGB CONC 34.2 g/dL (33.0-37.0); MEAN PLATELET VOLUME 8.4 fl (7.2-11.7); MONO # 0.4 K/uL (0.0-0.8); MONO % 6.9 % (0.0-10.0); NEUT # 2.9 K/uL (1.8-7.0); NEUT % 49.6 % (50.0-75.0); NRBC % 0.1 % (0.0-0.0); RBC 4.51 Mil/uL (3.80-5.20); RED CELL DISTRIBUTION WIDTH 12.9 % (11.5-14.5); WHITE BLOOD COUNT 5.9 K/uL (4.8-10.8)
[2018-11-18 13:35] LABS: INR 1.1
[2018-11-18 13:37] LABS: ALB/GLOB RATIO 1.2 (1.0-2.1); ALBUMIN 4.4 g/dL (3.5-5.0); ALT/SGPT 46 U/L (9-52); AST/SGOT 50 U/L (14-36); BLOOD UREA NITROGEN 10 mg/dl (7-17); CALCIUM 9.2 mg/dL (8.4-10.2); GFR NON-AFRICAN AMERICAN > 60
[2018-11-18 13:38] LABS: PARTIAL THROMBOPLASTIN TIME 33.6 Seconds (25.6-37.1)
[2018-11-18] MEDS ORDERED: Potassium Chloride 20 mEq ER Tab PO ONE ×2 (14:29→15:12)
[2018-11-18 15:45] LABS: SQUAMOUS EPITHIAL 21 /hpf (0-5); URINE BILIRUBIN NEGATIVE (NEGATIVE); URINE BLOOD NEGATIVE (NEGATIVE); URINE CLARITY CLOUDY (Clear); URINE COLOR AMBER (YELLOW); URINE GLUCOSE (UA) NEG (NEGATIVE); URINE LEUKOCYTE ESTERASE NEG Leu/uL (Negative); URINE PROTEIN 30 mg/dL (NEGATIVE)
--- NOTE | 2018-11-18 15:47 | ED PDOC ---
HPI: Chest Pain Time Seen by Provider: 11/18/18 12:51 Chief Complaint (Nursing): Chest Pain Chief Complaint (Provider): chest pain, SOB, diarrhea, vomiting History Per: Patient History/Exam Limitations: no limitations Current Symptoms Are (Timing): Still Present Severity: Moderate Modifying Factors: None Exacerbating Factors: None Additional Complaint(s): 48yo female multiple medical problems including HIV, asthma, seizures, presents w chest pain described as sharp/tight and associated w cough and SOB, also with several episodes nonbloody vomiting. Notes some gross blood in stool but she believes its her hemorrhoids. Denies syncope, fever or focal abdominal pain. Past Medical History Reviewed: Historical Data, Nursing Documentation, Vital Signs Vital Signs: Last Vital Signs Temp 98.2 F 11/18/18 12:36 Pulse 61 11/18/18 12:36 Resp 18 11/18/18 12:36 BP 124/83 11/18/18 12:36 Pulse Ox 98 11/18/18 12:36 Primary Care Provider: Doctor,Conversion - Medical History PMH: Anemia, Anxiety, Asthma (last attack 09/20/13), HIV, Seizures Denies: Diabetes, Hepatitis, HTN, Chronic Kidney Disease, Sexually Transmitted Disease - Surgical History Surgical History: Tonsillectomy (2012), - Family History Family History: States: Unknown Family Hx - Social History Current smoker - smoking cessation education provided: Yes - Home Medications Home Medications: Ambulatory Orders Medication Instructions Recorded ALPRAZolam [Xanax] 1 mg PO Q12H 06/25/17 Albuterol HFA [Ventolin HFA 90 2 puff IH Q6 PRN 06/25/17 mcg/actuation (8 g)] Dolutegravir Sodium [Tivicay] 50 mg PO DAILY 06/25/17 Emtricitabine/Tenofovir Diso 1 tab PO DAILY 06/25/17 [Truvada 200 MG-300 MG] Levetiracetam [Keppra] 750 mg PO Q12H 06/25/17 DULoxetine [Cymbalta] 60 mg PO DAILY 06/14/18 Ergocalciferol (Vitamin D2) 50,000 unit PO Q14D 11/18/18 [Vitamin D2] QUEtiapine [SEROquel] 50 mg PO HS 11/18/18 - Allergies Allergies/Adverse Reactions: Allergies Allergy/AdvReac Type Severity Reaction Status Date / Time No Known Allergies Allergy Verified 11/18/18 12:36 Review of Systems ROS Statement: Except As Marked, All Systems Reviewed And Found Negative Constitutional: Positive for: Chills, Weakness, Malaise ENT: Negative for: Throat Pain Cardiovascular: Positive for: Chest Pain, Palpitations Respiratory: Positive for: Cough, Shortness of Breath Gastrointestinal: Positive for: Vomiting, Abdominal Pain, Diarrhea, Hematochezia Genitourinary Female: Negative for: Dysuria Musculoskeletal: Negative for: Neck Pain, Back Pain Skin: Negative for: Rash, Lesions Neurological: Negative for: Weakness, Numbness Physical Exam - Reviewed Nursing Documentation Reviewed: Yes Vital Signs Reviewed: Yes - Physical Exam Appears: Positive for: Non-toxic Head Exam: Positive for: ATRAUMATIC, NORMAL INSPECTION, NORMOCEPHALIC Skin: Positive for: Normal Color, Warm, DRY Eye Exam: Positive for: EOMI, Normal appearance, PERRL ENT: Positive for: Normal ENT Inspection Neck: Positive for: Normal, Painless ROM Cardiovascular/Chest: Positive for: Regular Rate, Rhythm Respiratory: Positive for: Normal Breath Sounds, Wheezing Gastrointestinal/Abdominal: Positive for: Soft. Negative for: Tenderness, Guarding Back: Positive for: Normal Inspection Extremity: Positive for: Normal ROM Neurological/Psych: Positive for: Awake, Alert, Normal Tone, Oriented. Negative for: Motor/Sensory Deficits - Laboratory Results Result Diagrams: 11/18/18 13:15 11/18/18 13:15 Lab Results: PT 12.0 Seconds (9.8-13.1) 11/18/18 13:15 INR 1.1 11/18/18 13:15 APTT 33.6 Seconds (25.6-37.1) 11/18/18 13:15 Troponin I < 0.0120 ng/mL (0.00-0.120) 11/18/18 13:15 NT-Pro-B Natriuret Pep 40.0 pg/ml (0-450) 11/18/18 13:15 Total Bilirubin 0.8 mg/dl (0.2-1.3) 11/18/18 13:15 AST 50 U/L (14-36) H D 11/18/18 13:15 ALT 46 U/L (9-52) 11/18/18 13:15 Alkaline Phosphatase 85 U/L (38-126) 11/18/18 13:15 Total Protein 8.0 G/DL (6.3-8.2) 11/18/18 13:15 Albumin 4.4 g/dL (3.5-5.0) 11/18/18 13:15 Globulin 3.6 gm/dL (2.2-3.9) 11/18/18 13:15 Albumin/Globulin Ratio 1.2 (1.0-2.1) 11/18/18 13:15 - ECG ECG: Positive for: Interpreted By Me ECG Rhythm: Positive for: Normal ST Segment, Sinus Bradycardia, Nonspecific Changes Rate: 59 O2 Sat by Pulse Oximetry: 98 Pulse Ox Interpretation: Normal - Radiology X-Ray: Read By Radiologist X-Ray Interpretation: No Acute Disease Medical Decision Making Medical Decision Making: Initially patient to be admitted but d/w Jesús Sierra who reviewed her outpt records, had stress test in september and plate keeper saw patient recently. labs reviewed and unremarkable trop neg, UA squam epith, WBC and Hgb normal d/w Jesús Arango, if tolerates PO can be discharged to see dallin today or in morning Dr Leonardo vitals stable and states she feels better 415p Disposition - Clinical Impression Clinical Impression: Acute chest pain, Vomiting, Hematochezia - Patient ED Disposition Is Patient to be Admitted: Transfer of Care Counseled Patient/Family Regarding: Studies Performed, Diagnosis - Disposition Disposition Time: 15:30 Condition: IMPROVED Patient Signed Over To: Lorena Combs - Pt Status Changed To: Hospital Disposition Of: Observation
--- NOTE | 2018-11-18 16:08 | RAD ---
Date of service: 11/18/2018 HISTORY: SOB COMPARISON: 06/14/2018 TECHNIQUE: Chest PA and lateral views FINDINGS: LUNGS: No active pulmonary disease. PLEURA: No significant pleural effusion identified. No pneumothorax apparent. CARDIOVASCULAR: No aortic atherosclerotic calcification present. Normal cardiac size. No pulmonary vascular congestion. OSSEOUS STRUCTURES: No significant abnormalities. VISUALIZED UPPER ABDOMEN: Normal. OTHER FINDINGS: None. IMPRESSION: No active disease. No significant interval change compared to the prior examination(s).
[2018-11-18 16:21] VITALS: RESP 16
--- NOTE | 2018-11-18 16:38 | CARD ---
APPROVED REPORT Date of service: 11/18/2018 EKG Measurement Heart [id number] [id number] <Conclusion> Sinus bradycardia Otherwise normal ECG
--- NOTE | 2018-11-18 17:37 | ED PDOC ---
- Laboratory Results Result Diagrams: 11/18/18 13:15 11/18/18 13:15 Lab Results: PT 12.0 Seconds (9.8-13.1) 11/18/18 13:15 INR 1.1 11/18/18 13:15 APTT 33.6 Seconds (25.6-37.1) 11/18/18 13:15 Troponin I < 0.0120 ng/mL (0.00-0.120) 11/18/18 13:15 NT-Pro-B Natriuret Pep 40.0 pg/ml (0-450) 11/18/18 13:15 Total Bilirubin 0.8 mg/dl (0.2-1.3) 11/18/18 13:15 AST 50 U/L (14-36) H D 11/18/18 13:15 ALT 46 U/L (9-52) 11/18/18 13:15 Alkaline Phosphatase 85 U/L (38-126) 11/18/18 13:15 Total Protein 8.0 G/DL (6.3-8.2) 11/18/18 13:15 Albumin 4.4 g/dL (3.5-5.0) 11/18/18 13:15 Globulin 3.6 gm/dL (2.2-3.9) 11/18/18 13:15 Albumin/Globulin Ratio 1.2 (1.0-2.1) 11/18/18 13:15 Urine Color Crissy (YELLOW) 11/18/18 15:20 Urine Clarity Cloudy (Clear) 11/18/18 15:20 Urine pH 5.0 (5.0-8.0) 11/18/18 15:20 Ur Specific [place] 1.027 (1.003-1.030) 11/18/18 15:20 Urine Protein 30 mg/dL (NEGATIVE) 11/18/18 15:20 Urine Glucose (UA) Neg mg/dL (NEGATIVE) 11/18/18 15:20 Urine Ketones Trace mg/dL (NEGATIVE) 11/18/18 15:20 Urine Blood Negative (NEGATIVE) 11/18/18 15:20 Urine Nitrate Negative (NEGATIVE) 11/18/18 15:20 Urine Bilirubin Negative (NEGATIVE) 11/18/18 15:20 Urine Urobilinogen 1.0 mg/dL (0.2-1.0) 11/18/18 15:20 Ur Leukocyte Esterase Neg Angelique/uL (Negative) 11/18/18 15:20 Urine RBC (Auto) 3 /hpf (0-3) 11/18/18 15:20 Urine Microscopic WBC 4 /hpf (0-5) 11/18/18 15:20 Ur Squamous Epith Cells 21 /hpf (0-5) H 11/18/18 15:20 - ECG O2 Sat by Pulse Oximetry: 98 - Progress ED Course And Treament: 445p Rec'd endorsement from Dr Groves. Pt with vomiting and feeling better. Pending PO challenge. 530p Pt tolerated entire meal and eager to go home. Stable for dischargen. Disposition - Clinical Impression Clinical Impression: Acute chest pain, Vomiting, Hematochezia - POA Present On Arrival: None - Disposition Disposition: Routine/Home Disposition Time: 17:37 Condition: IMPROVED
[2018-11-18 17:54] VITALS: BP 118/71; PULSE 70; TEMP 98; O2SAT 97
== END 2018-11-18 17:53 | disposition home or self-care (01) ==
LOC: H.ER 12:21 → H.ERHOLD 16:01
PROVIDERS: ADMIT Family Medicine; ATTEND Nurse Practitioner Adult Health
DX: R07.9 Chest pain, unspecified (principal); R11.10 Vomiting, unspecified; K92.1 Melena; R56.9 Unspecified convulsions; J45.909 Unspecified asthma, uncomplicated; Z21 Asymptomatic human immunodeficiency virus [HIV] infection status; F17.200 Nicotine dependence, unspecified, uncomplicated
CPT/HCPCS: 71046; 80053; 81003; 83735; 83880; 84484; 85025; 85610; 85730; 93005; 96374; 99284; G0378; J1885; J2405; J2930; J7030